=== PATIENT | female | born 1970 | race Caucasian/White ===

== ENCOUNTER 2017-05-13 20:21 | Emergency (ER) | payer OTHER ==
[~2017-05-13] VITALS: Ht 167.6 cm; Wt 62.1 kg
[~2017-05-13 20:21] MED LIST: ANTIVERT25 MG PO; ATARAX25 MG PO; BACTRIM DS 8001 TA1 PO; CIPROFLOXACIN500 MG PO; CLARITIN-D 10 M1 T21 PO; CLARITIN10 MG PO; CLEOCIN150 MG PO; CLOTRIMAZOLE ANTIF1% TP; CORDROL20 MG PO; DAYPRO600 M1 PO; EFFEXOR XR150 MG PO; FLEXERIL10 MG PO; FLONASE 0.05% 121 EA NAS; HYDROCODONE BIT1 T11 PO; KEFLEX500 MG PO; LIDEX0.05% T; LOPID600 MG PO; MEDROL DOSEPAK4 MG PO; MOTRIN,RUFEN800 MG PO; MOTRIN800 MG PO; NAPROSYN500 MG PO; PREDNICOT20 MG PO; PREDNISONE10 MG PO; PREVACID30 M1 PO; PROAIR HFA0.09 MG/AC IH; ROBAXIN750 MG PO; TOBREX OPHTH S2.5 ML OPH; VIBRAMYCIN100 MG PO; VICODIN 5/500 505 MG PO; ZITHROMAX Z PA250 MG PO; ZOFRAN ODT4 MG SL
[2017-05-13 20:32] VITALS: BP 128/90
[2017-05-13] MEDS ORDERED: PREDNISONE20 M1 PO (20:50)
== END 2017-05-13 21:12 | disposition home or self-care (01) ==
LOC: ED 20:21
DX: B35.4 Tinea corporis (principal); F17.200 Nicotine dependence, unspecified, uncomplicated; Z88.0 Allergy status to penicillin

== ENCOUNTER 2017-08-08 22:29 | Inpatient (IN) | payer OTHER ==
[~2017-08-08] VITALS: Ht 167.6 cm; Wt 74.5 kg
--- NOTE | ~2017-08-08 | CON ---
[place], [place] REPORT OF CONSULTATION [id number] UNIT #: [id number] ROOM: [facility] DOCTOR: CAILIN FLANAGAN BIRTHDATE: [birth year] DOS: HISTORY OF PRESENT ILLNESS: The patient is a polite and pleasant 47-year-old female who was brought into the hospital by EMS for attempted suicide by overdose. She reports that she drank over 6 beers last night, which is not typical for her. She stated she was just having a relaxing evening at home and took her 's lisinopril. She is unsure of how many pills she took. She stated that she does not know why she took the pills. She does not really remember any reasoning or rationale behind it. The patient repeatedly states she is not suicidal. The patient states she has dealt with depression her entire life. The patient states that she does not have a plan to attempt suicide once she exits the hospital. The patient stated she is embarrassed and does not remember anything until waking up after being brought to the hospital. The patient states she feels better, states she has always dealt with depression, but has no major symptoms at this time. MEDICATIONS: The patient states she just finished taking prednisone. PAST MEDICAL HISTORY: Significant for hyperkalemia, hypocalcemia, systolic murmur, alcohol abuse. PHYSICAL EXAMINATION: The patient was awake, alert and oriented in all three spheres. She knew where she was and the date. She did not have any active hallucinations or delusions. She was clear of mind and repeatedly stated that she did not have a plan to attempt suicide. At this time, the patient plans to return home and follow up outpatient with counseling. I agree with this plan and have spoken to the nurse and social insurance administrator who will provide resources for her for outpatient counseling. She will be discharged home with her family. DIAGNOSIS: Major depression, moderate, recurrent. RECOMMENDATIONS: The patient will return home with her family and follow up outpatient. Thank you very much for the consult. NEREIDA Cota CM:CONSTR:REPORT OF CONSULTATION 1142 08/09/17 1226 interface
[~2017-08-08 22:29] MED LIST changes: +PREDNISONE20 M1 PO
[2017-08-08 22:36] VITALS: BP 143/84
--- NOTE | 2017-08-08 23:06 | NUR ---
SAM FROM [facility] NOTIFIED OF OVERDOSE. INFORMATION TO BE FAXED OVER
[2017-08-08 23:12] LABS: BASO # 0.1 10*3/uL (0.0-0.1); BASO % 1.1 % (0.0-1.0); EOS % 0.1 % (1.0-4.0); HEMATOCRIT 42.2 % (37.0-47.0); HEMOGLOBIN 14.1 g/dl (12.0-16.0); LYMPH # 2.8 10*3/uL (1.3-4.4); LYMPH % 28.1 % (27.0-41.0); MEAN CELL VOLUME 91.7 fl (81.0-99.0); MEAN CORPUSCULAR HGB 30.7 pg (27.0-31.0); MEAN CORPUSCULAR HGB CONC 33.4 g/dl (33.0-37.0); MEAN PLATELET VOLUME 10.2 fl (9.6-12.3); MONO # 0.6 10*3/uL (0.1-1.0); MONO % 5.5 % (3.0-9.0); NEUT # 6.6 10*3/uL (2.3-7.9); NEUT % 64.8 % (47.0-73.0); PLATELET COUNT AUTOMATED 274 10*3/uL (130-400); RED CELL DISTRI WIDTH 12.2 % (0-14.5); WHITE BLOOD COUNT 10.1 10*3/uL (4.8-10.8)
[2017-08-08 23:24] LABS: BILIRUBIN NEGATIVE (NEGATIVE); BLOOD TRACE-LYSED (NEGATIVE); CLARITY CLEAR (CLEAR); COLOR YELLOW (YELLOW); GLUCOSE NEGATIVE (NEGATIVE); KETONE NEGATIVE (NEGATIVE); LEUKO ESTERASE NEGATIVE (NEGATIVE); NITRITE NEGATIVE (NEGATIVE); SPECIFIC GRAVITY <= 1.005 (1.005-1.030); UROBILINOGEN 0.2 E.U./dl (0.2-1.0)
[2017-08-08 23:29] LABS: ALBUMIN 3.1 gm/dl (3.1-4.5); ALKALINE PHOSPHATASE 81 U/L (45-117); BUN 5 mg/dl (7-24); CHLORIDE 106 mmol/L (98-107); CREATININE 0.71 mg/dL (0.55-1.02); POTASSIUM 3.4 mmol/L (3.5-5.1); SGOT/AST 32 IU/L (3-35); SGPT/ALT 25 U/L (12-78); SODIUM 137 mmol/L (136-145); TOTAL PROTEIN 6.8 gm/dL (6.4-8.2)
[2017-08-08 23:30] VITALS: BP 115/73
[2017-08-08 23:31] LABS: EPITHELIAL CELLS 0-5
[2017-08-08 23:31] LABS: ACETAMINOPHEN (TYLENOL) < 2.0 ug/ml (10-30); TROPONIN I < 0.015 ng/ml (<0.045)
[2017-08-08 23:36] LABS: URINE AMPHETAMINES < 1000 (1000ng/ml); URINE BARBITURATES < 200 (200ng/ml); URINE BENZODIAZEPINES < 200 (200ng/ml); URINE CANNABINOIDS (THC) < 50 (50ng/ml); URINE COCAINE < 300 (300ng/ml); URINE METHADONE < 300 (300ng/ml); URINE OPIATES < 300 (300ng/ml)
[2017-08-08 23:38] LABS: URINE PHENCYCLIDINE < 25 (25ng/ml)
[2017-08-09 00:34] VITALS: BP 101/73
[2017-08-09 00:50] VITALS: BP 114/70; BP 114/72
--- NOTE | 2017-08-09 01:00 | NUR ---
A 47, admitted to [facility], under the services of TAB Black DO with a diagnosis of DRUG OVERDOSE. Chief complaint is SUICIDE ATTEMPT. Patient arrived via stretcher from ER. Monitor applied. Initial assessment completed. Vital signs taken and recorded. TAB BLACK DO notified of admission to the unit. Orders received. See assessment for past medical history, medications and allergies. Patient and/or family oriented to unit. [facility] visitation policy reviewed. Clothing/patient valuable form completed. CATHLEEN RODRIGUEZ
--- NOTE | 2017-08-09 01:00 | NUR ---
A 47, admitted to [facility], under the services of TAB Black DO with a diagnosis of DRUG OVERDOSE. Chief complaint is SUICIDE ATTEMPT. Patient arrived via stretcher from ER. Monitor applied. Initial assessment completed. Vital signs taken and recorded. TAB BLACK DO notified of admission to the unit. Orders received. See assessment for past medical history, medications and allergies. Patient and/or family oriented to unit. [facility] visitation policy reviewed. Clothing/patient valuable form completed. CATHLEEN RODRIGUEZ
--- NOTE | 2017-08-09 02:07 | NUR ---
[facility] PHONED IN AND UPDATED ON VS AND POC. THEY WILL CALL IN THE AM FOR AN UPDATE.
[2017-08-09 04:00] VITALS: BP 93/52
[2017-08-09 04:17] LABS: BASO # 0.1 10*3/uL (0.0-0.1); BASO % 1.1 % (0.0-1.0); HEMATOCRIT 40.1 % (37.0-47.0); HEMOGLOBIN 13.6 g/dl (12.0-16.0); LYMPH # 3.2 10*3/uL (1.3-4.4); LYMPH % 29.6 % (27.0-41.0); MEAN CELL VOLUME 89.9 fl (81.0-99.0); MEAN CORPUSCULAR HGB 30.5 pg (27.0-31.0); MEAN CORPUSCULAR HGB CONC 33.9 g/dl (33.0-37.0); MEAN PLATELET VOLUME 10.2 fl (9.6-12.3); MONO # 0.4 10*3/uL (0.1-1.0); MONO % 4.1 % (3.0-9.0); NEUT % 64.7 % (47.0-73.0); PLATELET COUNT AUTOMATED 271 10*3/uL (130-400); RED BLOOD COUNT 4.46 10*6/uL (4.10-5.10); RED CELL DISTRI WIDTH 12.1 % (0-14.5); WHITE BLOOD COUNT 10.9 10*3/uL (4.8-10.8)
[2017-08-09 04:47] LABS: BUN 4 mg/dl (7-24); CHLORIDE 111 mmol/L (98-107); CHOLESTEROL 188 mg/dL (<200); CREATININE 0.61 mg/dL (0.55-1.02); POTASSIUM 3.8 mmol/L (3.5-5.1); SODIUM 142 mmol/L (136-145); TRIGLYCERIDES 301 mg/dl (<150); VLDL CHOLESTEROL 60 mg/dL (6-40)
[2017-08-09 04:56] LABS: HDL CHOLESTEROL 36 mg/dl (40-60); LDL CHOLESTEROL 92 mg/dL (9-159)
--- NOTE | 2017-08-09 07:21 | NUR ---
Shift chart check completed.
[2017-08-09 08:00] VITALS: BP 116/78
[2017-08-09 08:41] LABS: VITAMIN D, 25-HYDROXY 27.8 ng/mL (30-100)
--- NOTE | 2017-08-09 08:41 | NUR ---
PATIENT DENIES ANY SUICIDAL THOUGHTS/IDEAS. SHE SAID WHEN ASKED WHY SHE DRANK THE ALCOHOL & TOOK THE PILLS THAT LAST NIGHT WAS HER TUESDAY NIGHT. WHEN TOLD THAT HER FAMILY SAID THAT SHE DOESN'T USUALLY DRINK THAT MUCH SHE SAID WELL NOT USUALLY THATS RIGHT. WHEN ASKED ABOUT THE PILLS SHE SAID I HAVE NO IDEA WHY I TOOK THEM. WHEN ASKED IF THERE WAS A FIGHT/ARGUMENT SHE SAID NO. IVF INFUSING.
--- NOTE | 2017-08-09 08:54 | NUR ---
MED REC UPDATED TO SHOW NO HOME MEDS PER PT
--- NOTE | 2017-08-09 09:56 | NUR ---
DR BEAVERS MADE ROUNDS - MESSAGE LEFT WITH DR WICK OFFICE.
--- NOTE | 2017-08-09 10:02 | NUR ---
SPOKE WITH CRISELDA JOHANSEN ABOUT CASE. SHE WILL BE HERE ABOUT 1115.
--- NOTE | 2017-08-09 11:33 | NUR ---
met with client . she denies to me that she is suicidal, she said that she had worked 13 days straight and she said she drank and doesnt really remember after that, she said she is fine to go home, feels safe, declined any need for outpatient, i did discuss resources with her, she is pleasant and cooperative and could be dc without risk at this time.
--- NOTE | 2017-08-09 11:50 | NUR ---
SPOKE WITH [facility] ABOUT 2 HOURS AGO THEN JUST RECEIVED A CALL FROM [facility]. WILL SPEAK WITH SUPERVISORS ABOUT IT.
[2017-08-09 12:00] VITALS: BP 116/54
--- NOTE | 2017-08-09 14:11 | NUR ---
DR BEAVERS HERE AND GAVE THE PATIENT HER DISCHARGE INSTRUCTIONS. Hep Lock discontinued. Site asymptomatic. Pressure applied. Sterile dressing applied. Discharge instructions reviewed with patient/family. Patient receptive and verbalizes understanding. Follow-up care arranged. Written instructions given to patient/family. PATIENT CHOOSE TO AMBULATE OUT [facility]
== END 2017-08-09 14:11 | disposition home or self-care (01) | DRG 918 ==
LOC: ED → EDHOLD 23:50 → ICCU 23:50
PROVIDERS: Emergency Medicine Emergency Medical Services; Internal Medicine; ADMIT Emergency Medicine
DX: T46.4X2A Poisoning by angiotensin-converting-enzyme inhibitors, intentional self-harm, initial encounter (principal); F33.9 Major depressive disorder, recurrent, unspecified; F17.200 Nicotine dependence, unspecified, uncomplicated; E83.51 Hypocalcemia; F10.929 Alcohol use, unspecified with intoxication, unspecified; R01.1 Cardiac murmur, unspecified; E87.6 Hypokalemia; Z88.0 Allergy status to penicillin; Z82.3 Family history of stroke; Y92.89 Other specified places as the place of occurrence of the external cause

== ENCOUNTER 2017-10-27 09:47 | Emergency (ER) | payer OTHER ==
[~2017-10-27] VITALS: Ht 167.6 cm; Wt 62.1 kg
[2017-10-27 10:36] LABS: BILIRUBIN NEGATIVE (NEGATIVE); BLOOD 3+ (NEGATIVE); CLARITY SL CLOUDY (CLEAR); COLOR YELLOW (YELLOW); GLUCOSE NEGATIVE (NEGATIVE); KETONE NEGATIVE (NEGATIVE); LEUKO ESTERASE NEGATIVE (NEGATIVE); NITRITE NEGATIVE (NEGATIVE); SPECIFIC GRAVITY >= 1.030 (1.005-1.030); UROBILINOGEN 0.2 E.U./dl (0.2-1.0)
[2017-10-27 10:49] LABS: BACTERIA 3+; EPITHELIAL CELLS 20-30; RBC 21-30 rbc/hpf (0-2)
[2017-10-27 12:37] VITALS: BP 139/81
[2017-10-27] MEDS ORDERED: Motrin,Rufen800 MG PO (13:08)
== END 2017-10-27 13:29 | disposition home or self-care (01) ==
LOC: ED 09:47
PROVIDERS: Emergency Medicine
DX: M79.1 Myalgia (principal); E87.6 Hypokalemia; F32.9 Major depressive disorder, single episode, unspecified; E83.51 Hypocalcemia; F17.200 Nicotine dependence, unspecified, uncomplicated; F10.10 Alcohol abuse, uncomplicated; Z88.0 Allergy status to penicillin

== ENCOUNTER 2018-03-01 14:42 | Emergency (ER) | payer OTHER ==
[~2018-03-01] VITALS: Ht 167.6 cm; Wt 62.1 kg
[~2018-03-01 14:42] MED LIST changes: +Motrin,Rufen800 MG PO
[2018-03-01 14:43] VITALS: BP 137/64
[2018-03-01 15:06] LABS: BILIRUBIN NEGATIVE (NEGATIVE); BLOOD 1+ (NEGATIVE); CLARITY CLEAR (CLEAR); COLOR YELLOW (YELLOW); GLUCOSE NEGATIVE (NEGATIVE); KETONE TRACE (NEGATIVE); LEUKO ESTERASE TRACE (NEGATIVE); NITRITE NEGATIVE (NEGATIVE); UROBILINOGEN 0.2 E.U./dl (0.2-1.0)
[2018-03-01 15:07] LABS: BASO % 0.3 % (0.0-1.0); EOS % 0.1 % (1.0-4.0); HEMOGLOBIN 14.7 g/dl (12.0-16.0); LYMPH # 2.7 10*3/uL (1.3-4.4); MEAN CELL VOLUME 92.2 fl (81.0-99.0); MEAN CORPUSCULAR HGB 30.8 pg (27.0-31.0); MEAN CORPUSCULAR HGB CONC 33.4 g/dl (33.0-37.0); MEAN PLATELET VOLUME 10.2 fl (9.6-12.3); MONO # 0.5 10*3/uL (0.1-1.0); MONO % 7.2 % (3.0-9.0); NEUT # 3.5 10*3/uL (2.3-7.9); PLATELET COUNT AUTOMATED 276 10*3/uL (130-400); RED BLOOD COUNT 4.77 10*6/uL (4.10-5.10); RED CELL DISTRI WIDTH 12.9 % (0-14.5); WHITE BLOOD COUNT 6.8 10*3/uL (4.8-10.8)
[2018-03-01 15:13] LABS: BACTERIA TRACE
[2018-03-01 15:20] LABS: ALBUMIN 3.4 gm/dl (3.1-4.5); ALKALINE PHOSPHATASE 82 U/L (45-117); BUN 9 mg/dl (7-24); CHLORIDE 105 mmol/L (98-107); CREATININE 0.83 mg/dL (0.55-1.02); LIPASE 393 U/L (73-393); POTASSIUM 3.4 mmol/L (3.5-5.1); SGOT/AST 14 IU/L (3-35); SGPT/ALT 18 U/L (12-78); SODIUM 140 mmol/L (136-145); TOTAL PROTEIN 6.9 gm/dL (6.4-8.2)
[2018-03-01] MEDS ORDERED: CYCLOBENZAPRINE10 MG PO (17:28)
[2018-03-01] MEDS ORDERED: NAPROSYN500 MG PO (17:28)
[2018-03-01] MEDS ORDERED: SEPTDS PO (17:28)
== END 2018-03-01 17:35 | disposition home or self-care (01) ==
LOC: ED 14:42
PROVIDERS: Nurse Practitioner Family
DX: S39.011A Strain of muscle, fascia and tendon of abdomen, initial encounter (principal); N39.0 Urinary tract infection, site not specified; R31.9 Hematuria, unspecified; F17.200 Nicotine dependence, unspecified, uncomplicated; Z88.0 Allergy status to penicillin; X50.1XXA Overexertion from prolonged static or awkward postures, initial encounter; Y93.89 Activity, other specified; Y92.89 Other specified places as the place of occurrence of the external cause; Y99.9 Unspecified external cause status

== ENCOUNTER → 2020-10-01 | Outpatient (CLI) | payer OTHER ==
[~2020-10-01] MED LIST changes: +CYCLOBENZAPRINE10 MG PO; +SEPTDS PO
== END | disposition home or self-care (01) ==
LOC: COVID19 16:00
PROVIDERS: ATTEND Student in an Organized Health Care Education/Training Program
DX: Z20.828 Contact with and (suspected) exposure to other viral communicable diseases (principal)